=== PATIENT | female | born 1960 | race Caucasian/White ===

== ENCOUNTER → 2020-08-12 | Outpatient (CLI) | payer OTHER | END | disposition home or self-care (01) | LOC: CFH 09:17 | PROVIDERS: ATTEND Internal Medicine | DX: Z12.31 Encounter for screening mammogram for malignant neoplasm of breast (principal) | CPT/HCPCS: 77063; 77067 ==

== ENCOUNTER 2020-12-28 01:58 | Emergency (ER) | payer OTHER ==
[~2020-12-28] VITALS: Ht 165.1 cm; Wt 73.3 kg
[2020-12-28] MEDS ORDERED: DIPHENHYDRAMINE 50 MG/ML, 1ML IVPush ONE (03:00)
[2020-12-28] MEDS ORDERED: PROCHLORPERAZINE 5 MG/ML, 2ML IVPush ONE (03:00)
[2020-12-28] MEDS ORDERED: DIPHENHYDRAMINE 50 MG/ML, 1ML ONE (03:01)
[2020-12-28] MEDS ORDERED: PROCHLORPERAZINE 5 MG/ML, 2ML ONE (03:01)
[2020-12-28 03:24] LABS: ALBUMIN 4.1 g/dL (3.4-5.0); ANION GAP 4 mmol/L (5-15); CHLORIDE 109 mmol/L (98-107); CREATININE 0.97 mg/dL (0.55-1.02)
[2020-12-28 03:28] LABS: BASOPHILS % (AUTO) 1 % (0-1); EOSINOPHILS % (AUTO) 2 % (1-7); LYMPHOCYTES % (AUTO) 22 % (22-44); MEAN CORPUSCULAR HEMOGLOBIN 32.1 pg (27.0-34.8); MEAN CORPUSCULAR HGB CONC 35.3 g/dL (32.4-35.8); MEAN PLATELET VOLUME 9.8 fL (7.4-10.4); MONOCYTES % (AUTO) 10 % (2-9); NEUTROPHILS % (AUTO) 65 % (42-75); PLATELET COUNT 234 x10^3/uL (130-400); RED BLOOD COUNT 4.84 x10^6/uL (3.82-5.3); RED CELL DISTRIBUTION WIDTH 12.6 % (9.6-15.2)
[2020-12-28] MEDS ORDERED: OMNIPAQUE 350 MG/ML, 100ML BOTTLE ONE (04:03)
--- NOTE | 2020-12-28 04:29 | NUR ---
PT REPORTS MIGRAINE PAIN HAS IMPROVED FROM A 10/10 TO A 5/10
[2020-12-28] MEDS ORDERED: KETOROLAC 30 MG/1 ML ONE (05:12)
[2020-12-28] MEDS ORDERED: ACETAMINOPHEN 500 MG TABLET ONE (05:12)
[2020-12-28 05:22] VITALS: BP 155/86
[2020-12-28] MEDS ORDERED: KETOROLAC 30 MG/1 ML IVPush ONE (05:30)
[2020-12-28] MEDS ORDERED: ACETAMINOPHEN 500 MG TABLET PO ONE (05:30)
== END 2020-12-28 06:31 | disposition home or self-care (01) ==
LOC: ED 06:25
DX: G43.009 Migraine without aura, not intractable, without status migrainosus (principal); E03.9 Hypothyroidism, unspecified; R94.31 Abnormal electrocardiogram [ECG] [EKG]
CPT/HCPCS: 36415; 70450; 70496; 70498; 80048; 82040; 85025; 93005; 96374; 96375; 99285; J0780; J1200; J1885; Q9967